=== PATIENT | female | born 1985 | race Caucasian/White ===

== ENCOUNTER 2017-01-12 13:15 | Emergency (ER) | payer OTHER | END 2017-01-12 14:35 | disposition home or self-care (01) | LOC: ER1 13:15 | DX: S61.213A Laceration without foreign body of left middle finger without damage to nail, initial encounter (principal); W27.2XXA Contact with scissors, initial encounter; Y92.218 Other school as the place of occurrence of the external cause; Z23 Encounter for immunization | CPT/HCPCS: 12001; 90471; 90715; 99283 ==